=== PATIENT | male | born 1985 | race Caucasian/White ===

== ENCOUNTER 2017-02-26 11:21 | Emergency (ER) | payer OTHER ==
[2017-02-26] MEDS ORDERED: HYDROmorphone 1 MG/ML Syringe IM ONE (11:58)
[2017-02-26] MEDS ORDERED: Ketorolac 60 MG/2 ML SDV IM ONE (11:58)
--- NOTE | 2017-02-26 12:01 | EDM.PDOC ---
ED HPI LOWER BACK PAIN/INJURY - General Chief Complaint: Back Pain or Injury Stated Complaint: BACK PAIN/WORK INJURY Time Seen by Provider: 02/26/17 11:52 Source of Information: Reports: Patient History Limitations: Reports: No limitations - History of Present Illness INITIAL COMMENTS - FREE TEXT/NARRATIVE: Patient is a 31-year-old male presents ED complaining of diffuse low back pain. States while lifting approximately 50 pound items out of a basket he was bending over and rotating and felt increased pain to his low back. States over the course of about an hour half the discomfort progressively got worse. Once he laid down for a short period of time he attempted to get back up and experienced spasms to his low back. He cannot stand straight up, has difficulty walking, weight bearing secondary to pain. Has a history of similar episode approximately one year ago after lifting a heavy object. He received a pain medication in the ED with relief. He has no history of herniated disc, back surgeries, or any additional contributory medical history. Denies any incontinence to urine or stool, numbness or tingling, weakness, or any additional complaints. Timing/Duration: Reports: Constant, Waxing/waning Location: Reports: lower, midline, other (bilateral) Quality: Reports: Ache, Same as previous episode, Sharp, Throbbing Severity: mild (at rest) Place of Occurrence: work Improves with: Reports: Rest Worsens with: Reports: Movement Context: Reports: lifting, bending Associated Symptoms: Reports: Difficulty walking (Secondary to pain). 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: Other (see below) (None stated) - Related Data Allergies/ADRs: Allergies Allergy/AdvReac Type Severity Reaction Status Date / Time No Known Allergies Allergy Verified 02/26/17 11:34 Home Meds: Home Meds Albuterol [Ventolin HFA] 8 gm INH Q4H PRN 02/26/17 [History] Past Medical History - Past Health History Medical/Surgical History: Denies Medical/Surgical History Respiratory History: Reports: Asthma Musculoskeletal History: Reports: Other (see below) Other Musculoskeletal History: hx arm fracture - Past Surgical History HEENT Surgical History: Reports: Adenoidectomy, Tonsillectomy Musculoskeletal Surgical History: Reports: Other (see below) Other Musculoskeletal Surgeries/Procedures:: Tib/fib fx and repair Social & Family History - Family History Family Medical History: Noncontributory - Tobacco Use Smoking Status *Q: Never Smoker - Caffeine Use Caffeine Use: Reports: Soda - Recreational Drug Use Recreational Drug Use: No ED ROS GENERAL - Review of Systems Review Of Systems: See Below GI/Abdominal: Reports: No symptoms Musculoskeletal: Reports: back pain (Low back diffuse) Skin: Reports: no symptoms Neurological: Reports: Difficulty Walking (Secondary to pain). Denies: Numbness , Tingling ED EXAM,LOWER BACK PAIN/INJURY - Physical Exam Exam: See Below Exam Limited By: No limitations General Appearance: alert, WD/WN, no apparent distress Ears: hearing grossly normal Throat/Mouth: Normal voice, No airway compromise Neck: normal inspection, supple Respiratory/Chest: no respiratory distress, lungs clear, normal breath sounds Cardiovascular: normal peripheral pulses, regular rate, rhythm, no murmur GI/Abdominal: normal bowel sounds, soft, non tender, no distention Rectal (Males) Exam: Deferred Back Exam: normal inspection, decreased range of motion (Secondary to low back) , other (Increased discomfort with movement). No: paraspinal tenderness, vertebral tenderness Extremities: normal inspection, normal range of motion, non-tender, no pedal edema, normal capillary refill Neurological: alert, normal mood/affect, normal dorsiflexion, normal plantar flexion, no motor/sensory deficits, oriented x 3. No: straight leg raise (L), straight leg raise (R) Psychiatric: normal affect, normal mood Skin Exam: Warm, Dry, Intact, Normal color, No rash Course - Vital Signs Last Recorded V/S: Last Vital Signs Temp 97.9 F 02/26/17 11:25 Pulse 79 02/26/17 13:25 Resp 18 02/26/17 13:25 BP 144/74 H 02/26/17 13:25 Pulse Ox 96 02/26/17 13:25 - Orders/Labs/Meds Meds: Medications Discontinued Medications Generic Name Dose Route Start Last Admin Trade Name Aleks PRN Reason Stop Dose Admin Hydromorphone HCl 1 mg 02/26/17 11:58 02/26/17 12:15 Dilaudid IM 02/26/17 11:59 1 mg ONETIME ONE Administration Ketorolac Tromethamine 60 mg 02/26/17 11:58 02/26/17 12:16 Toradol IM 02/26/17 11:59 60 mg ONETIME ONE Administration - Re-Assessments/Exams Free Text/Narrative Re-Assessment/Exam: Ordered Dilaudid 1 mg IM and Toradol 60 mg IM. 02/26/17 11:58 Pain is improved with the above therapies. Will discharge patient home with instructions as documented. Departure - Departure Time of Disposition: 13:22 Disposition: Home, Self-Care 01 Condition: good Clinical Impression: Low back strain Qualifiers: Encounter type: initial encounter Qualified Code(s): S39.012A - Strain of muscle, fascia and tendon of lower back, initial encounter Referrals: PCP,Not In Area [Primary Care Provider] - Forms: ED Department Discharge, Return to Work/School Form Additional Instructions: See paper instructions.
[2017-02-26 14:45] VITALS: BP 144/74
== END 2017-02-26 13:25 | disposition home or self-care (01) ==
LOC: JD.ED 11:21
DX: S39.012A Strain of muscle, fascia and tendon of lower back, initial encounter (principal); X50.0XXA Overexertion from strenuous movement or load, initial encounter; Y92.69 Other specified industrial and construction area as the place of occurrence of the external cause; Y99.0 Civilian activity done for income or pay; J45.909 Unspecified asthma, uncomplicated; Z98.890 Other specified postprocedural states
CPT/HCPCS: 96372; 99283; J1170; J1885; 99284